=== PATIENT | male | born 1960 | race Caucasian/White ===

== ENCOUNTER 2022-02-23 14:29 | Emergency (ER) | payer BC, SELFPAY ==
[2022-02-23 14:38] VITALS: BP 146/93; PULSE 91; RESP 18; TEMP 36.2; O2SAT 97; BMI 28.3
[2022-02-23 15:00] VITALS: BP 144/84; PULSE 86; O2SAT 95
[2022-02-23 15:09] LABS: Basophils Absolute Auto 0.01 K/uL (0.00-0.30); Basophils Percent Auto 0.2 % (0.0-3.0); Eosinophils Absolute Auto 0.08 K/uL (0.00-0.50); Eosinophils Percent Auto 1.5 % (0.0-7.0); Hemoglobin* 15.5 gm/dL (13.5-17.5); Immature Granulocytes Abs Auto 0.03 K/uL (0.00-0.30); Immature Granulocytes Pct Auto 0.5 %; Lymphocytes Absolute Auto 1.45 K/uL (0.90-2.90); Lymphocytes Percent Auto 26.4 % (20-44); Mean Corpuscular HGB Conc 34 gm/dL (32-36); Mean Corpuscular Hemoglobin 30 pg (26-34); Mean Corpuscular Volume 90 fL (80-100); Monocytes Percent Auto 11.5 % (0.0-11.0); Neutrophils Absolute Auto 3.29 K/uL (1.7-7.0); Neutrophils Percent Auto 59.9 % (42.0-72.0); Platelet Count* 259 K/uL (140-440); RDW Coefficient of Variation % 13.4 % (11.5-15.5); White Blood Count* 5.49 K/uL (4.50-11.00)
[2022-02-23 15:14] LABS: Slide Review Reflex No
[2022-02-23 15:28] LABS: Chloride* 109 mmol/L (96-114); Potassium* 3.6 mmol/L (3.6-5.1); Sodium* 140 mmol/L (135-149)
[2022-02-23 15:30] VITALS: BP 131/84; PULSE 82; RESP 18; O2SAT 95
[2022-02-23 15:30] LABS: Albumin* 4.2 g/dL (3.3-5.0)
[2022-02-23 15:31] LABS: Est. Creatinine Clearance* 65.78; Estimated Glomerular Filt Rate 86 ml/min
[2022-02-23 15:32] LABS: Bilirubin Direct* 0.1 mg/dL (0.0-0.5); Bilirubin Total* 0.5 mg/dL (0.1-1.5); Blood Urea Nitrogen* 14 mg/dL (7-30); Calcium* 8.3 mg/dL (8.4-10.6); Carbon Dioxide* 25 mmol/L (20-32); D Dimer Quantitative* 0.33 ug/ml (0.00-0.50); Glucose* 133 mg/dL (60-115); Total Protein* 6.7 g/dL (6.0-8.3)
[2022-02-23 15:33] LABS: Alanine Aminotransferase* 31 U/L (4-50); Alkaline Phosphatase* 92 U/L (40-150); Aspartate Amino Transferase* 31 U/L (12-35); Lipase* 91 U/L (23-300)
[2022-02-23 15:35] LABS: C Reactive Protein* < 0.5 mg/dL (0.5-1.0)
[2022-02-23 16:00] VITALS: BP 123/86; PULSE 78; O2SAT 94
--- NOTE | 2022-02-23 16:22 | CRLHL7_ITS ---
For Patients: As a result of the Cures Act, medical imaging exams and procedure reports are released immediately into your electronic medical record. You may view this report before your referring provider. If you have questions, please contact your health care provider. INDICATION: Chest pain TECHNIQUE: Chest 2 views. COMPARISON: Chest x-ray 08/24/2016 FINDINGS: The heart is normal in size. The pulmonary vasculature is within normal limits. The lungs are clear without focal consolidation, pleural effusion or pneumothorax. There are mild degenerative changes of the thoracic spine. IMPRESSION: No acute process. Dictated by Renata Dacosta MD @ 02/23/2022 5:13:49 PM Dictated by: Renata Dacosta MD @ 02/23/2022 17:13:57 (Electronically Signed)
[2022-02-23 16:30] VITALS: BP 139/102; PULSE 70; O2SAT 97
--- NOTE | 2022-02-23 16:30 | ED_ITS ---
HPI - General Adult General Date Seen: 02/23/22 Chief complaint: Chest Pain Stated complaint: Chest Pain Time Seen by Provider: 02/23/22 14:43 Source: patient History of Present Illness HPI narrative: Patient is a 61-year-old male who presents for some right-sided chest pain which has been present for the past 3 or 4 days. He says that he notices it after he gets up in the morning, when he is moving around. It is in a localized area in the right chest, he also notes some pain by his scapula on the right, and particularly when he moves his head in a certain way he can bring the pain on. He has not had any pain in the right arm. He says that it tends to bother him until about noon and then goes away for the rest of the day. He describes it is somewhat sharp and achy. He also notes pain with a deep breath when it is bothering him. He maybe has felt a little short of breath, occasionally feels like his heart is may be racing, sometimes feels lightheaded when he stands up, but all of these symptoms seem to go way by noon every day. He had not really thought much of it, but was at work today and a co-worker told him he should get it checked out. He does note that his dad had bypass surgery in his 50s. His mom had a couple of strokes as well. He himself does not have any significant medical problems aside from gastroesophageal reflux. He does not have any history of hypertension, high cholesterol, diabetes. He does not smoke. Drinks rarely. He has not had any exertional chest pain. No syncope. No unusual leg swelling or pain. Denies fevers or cough. There is no history personally or family history of DVT or PE. He has not tried any medications at home for pain. Related Data Home Medications Medication Instructions Recorded Confirmed dexlansoprazole 60 mg mg 02/23/22 capsule,biphase delayed release (Dexilant) Allergies Allergy/AdvReac Type Severity Reaction Status Date / Time No Known Drug Allergies Allergy Verified 02/23/22 14:40 Review of Systems Status of ROS: Reports: 10 or more systems reviewed and unremarkable except as noted in History and below [facility] Social History Smoking Status: Never smoker How often do you have a drink containing alcohol: 2-4 times a month AUDIT-C Alcohol total score: 2 Non-prescribed substance use: denies use Exam Narrative: Exam Narrative: Vital signs as noted above. In general, an alert, well-appearing patient. Head: Normocephalic, atraumatic. Eyes: Pupils are equal reactive. Extraocular movements are full. Conjunctivae are normal. ENT: Mucous membranes are moist. Throat is normal. Neck: Supple without lymphadenopathy. Heart: Regular rate and rhythm. No murmur or rub. No reproducible chest wall tenderness. Lungs: Clear bilaterally. No increased work of breathing, crackles or wheezes. Abdomen: Soft and nontender. No organomegaly. Extremities: Well perfused. No edema. No calf tenderness. Pulses intact. Neurologic: Patient is alert and oriented to person and place. Speech is fluent. Face is symmetric. Moves all extremities equally. Affect: Normal. Skin: Warm and dry. Well perfused. Const: Vital Signs, click to edit/add: Vital Signs - 24 hr 02/23/22 14:38 02/23/22 15:00 02/23/22 15:30 Temperature 97.1 F L Pulse Rate [Pulse Oximeter] 91 86 82 Respiratory Rate 18 18 Blood Pressure [Ri ght Upper Arm] 146/93 H 144/84 H 131/84 Pulse Oximetry 97 95 95 Oxygen Delivery Me thod Room Air Room Air Room Air 02/23/22 16:00 02/23/22 16:30 02/23/22 17:00 Temperature Pulse Rate [Pulse Oximeter] 78 70 73 Respiratory Rate Blood Pressure [Ri ght Upper Arm] 123/86 139/102 H 120/88 Pulse Oximetry 94 97 96 Oxygen Delivery Me thod Room Air Room Air Room Air Course Course Hospital Course: Following initial evaluation, patient had an EKG which by my review showed a normal sinus rhythm, ventricular rate of 87 beats per minute. No acute ST segment changes. Normal EKG. Overall, my suspicion for cardiac etiology is low. He is able to reproduce the symptoms with certain movements of his head and neck, and I suspect that this is musculoskeletal in etiology. Given that it was pleuritic I did do a D-dimer which was negative. He does not have other risk factors for PE and I think this is ruled out with a negative D-dimer. His troponin was negative, and given the overall nature of his symptoms I do not think he needs further cardiac workup today. Would recommend primary care follow-up to make sure that this is resolving and not changing to ensure that he does not need further evaluation for heart disease given his family history. LFTs and lipase are normal. His symptoms do not sound suspicious for biliary colic. He does take medication for gastroesophageal reflux, I am not overly suspicious of an exacerbation of this underlying condition. A two view chest x- ray by my review is negative. Final radiology report is likewise negative. I would suggest that we try a trial of nonsteroidals and see how he feels over the next few days. Discussed with him I do not want him to continue that for too long given his history of gastroesophageal reflux, but I think couple of days is reasonable to see if it alleviates his symptoms. Return at any time for acute worsening, severe pain, or new symptoms. Vital Signs Vital signs: Initial Vital Signs Temperature 97.1 F L 02/23/22 14:38 Temperature Source Temporal Artery Scan 02/23/22 14:38 Pulse Rate 91 02/23/22 14:38 Respiratory Rate 18 02/23/22 14:38 Blood Pressure 146/93 H 02/23/22 14:38 Blood Pressure Mean 110 02/23/22 14:38 Blood Pressure Position Supine 02/23/22 14:38 Pulse Oximetry 97 02/23/22 14:38 Oxygen Delivery Method 02/23/22 14:38 Vital Signs Temperature 97.1 F L 02/23/22 14:38 Pulse Rate 91 02/23/22 14:38 Respiratory Rate 18 02/23/22 14:38 Blood Pressure 146/93 H 02/23/22 14:38 Pulse Oximetry 97 02/23/22 14:38 Oxygen Delivery Method 02/23/22 14:38 Temperature 97.1 F L 02/23/22 14:38 Pulse Rate 73 02/23/22 17:00 Respiratory Rate 18 02/23/22 15:30 Blood Pressure 120/88 02/23/22 17:00 Pulse Oximetry 96 02/23/22 17:00 Oxygen Delivery Method 02/23/22 17:00 Medical Decision Making Lab Data Labs: Lab Results 02/23/22 02/23/22 02/23/22 Range/Units 15:02 15:02 15:02 WBC 5.49 (4.50-11.00) K/uL RBC 5.10 (4.30-5.90) m/uL Hgb 15.5 (13.5-17.5) gm/dL Hct 46.0 (37.0-53.0) % MCV 90 (80-100) fL MCH 30 (26-34) pg MCHC 34 (32-36) gm/dL RDW Coeff of César 13.4 (11.5-15.5) % Plt Count 259 (140-440) K/uL Neut % (Auto) 59.9 (42.0-72.0) % Lymph % (Auto) 26.4 (20-44) % Weld % (Auto) 11.5 H (0.0-11.0) % Eos % (Auto) 1.5 (0.0-7.0) % Baso % (Auto) 0.2 (0.0-3.0) % Neut # (Auto) 3.29 (1.7-7.0) K/uL Lymph # (Auto) 1.45 (0.90-2.90) K/uL Weld # (Auto) 0.60 (0.00-0.90) K/UL Eos # (Auto) 0.08 (0.00-0.50) K/uL Baso # (Auto) 0.01 (0.00-0.30) K/uL Abs Immat Gran (auto) 0.03 (0.00-0.30) K/uL Imm/Tot Granulo (auto) 0.5 % D-Dimer Quant (PE/DVT) 0.33 (0.00-0.50) ug/ml Sodium 140 (135-149) mmol/L Potassium 3.6 (3.6-5.1) mmol/L Chloride 109 (96-114) mmol/L Carbon Dioxide 25 (20-32) mmol/L BUN 14 (7-30) mg/dL Creatinine 1.0 (0.5-1.5) mg/dL Estimated Creat Clear 65.78 Estimated GFR 86 ml/min Glucose 133 H (60-115) mg/dL Calcium 8.3 L (8.4-10.6) mg/dL Total Bilirubin (0.1-1.5) mg/dL Direct Bilirubin (0.0-0.5) mg/dL AST (12-35) U/L ALT (4-50) U/L Alkaline Phosphatase (40-150) U/L C-Reactive Protein < 0.5 L (0.5-1.0) mg/dL Total Protein (6.0-8.3) g/dL Albumin (3.3-5.0) g/dL Lipase (23-300) U/L POC Troponin I (0.01-0.04) ng/ml 02/23/22 02/23/22 Range/Units 15:02 15:02 WBC (4.50-11.00) K/uL RBC (4.30-5.90) m/uL Hgb (13.5-17.5) gm/dL Hct (37.0-53.0) % MCV (80-100) fL MCH (26-34) pg MCHC (32-36) gm/dL RDW Coeff of César (11.5-15.5) % Plt Count (140-440) K/uL Neut % (Auto) (42.0-72.0) % Lymph % (Auto) (20-44) % Weld % (Auto) (0.0-11.0) % Eos % (Auto) (0.0-7.0) % Baso % (Auto) (0.0-3.0) % Neut # (Auto) (1.7-7.0) K/uL Lymph # (Auto) (0.90-2.90) K/uL Weld # (Auto) (0.00-0.90) K/UL Eos # (Auto) (0.00-0.50) K/uL Baso # (Auto) (0.00-0.30) K/uL Abs Immat Gran (auto) (0.00-0.30) K/uL Imm/Tot Granulo (auto) % D-Dimer Quant (PE/DVT) (0.00-0.50) ug/ml Sodium (135-149) mmol/L Potassium (3.6-5.1) mmol/L Chloride (96-114) mmol/L Carbon Dioxide (20-32) mmol/L BUN (7-30) mg/dL Creatinine (0.5-1.5) mg/dL Estimated Creat Clear Estimated GFR ml/min Glucose (60-115) mg/dL Calcium (8.4-10.6) mg/dL Total Bilirubin 0.5 (0.1-1.5) mg/dL Direct Bilirubin 0.1 (0.0-0.5) mg/dL AST 31 (12-35) U/L ALT 31 (4-50) U/L Alkaline Phosphatase 92 (40-150) U/L C-Reactive Protein (0.5-1.0) mg/dL Total Protein 6.7 (6.0-8.3) g/dL Albumin 4.2 (3.3-5.0) g/dL Lipase 91 (23-300) U/L POC Troponin I 0.00 L (0.01-0.04) ng/ml Discharge Plan Discharge Clinical Impression: Atypical chest pain Patient Disposition: Home, Self-Care Condition: Stable Instructions: Chest Wall Pain (ED) Additional Instructions: I suspect chest pain is related to a musculoskeletal problem. I would recommend that we try a few days of scheduled ibuprofen, 400 mg 3 times daily with food. I do not when she to continue this for more than a few days as it may cause you more problems with heartburn. If you are not improving in that time, follow-up with your primary doctor for re-evaluation. If you have any significant worsening, severe pain, new symptoms such as fever, severe shortness of breath, vomiting, fainting, etcetera return at any time for re-evaluation. Prescriptions: No Action dexlansoprazole [Dexilant] 60 mg capsule,biphase delayed releas Follow Up/Referrals: Fitz Guerrero MD [Primary Care Provider] - Stand Alone Forms: [employer] Info Instructions
[2022-02-23 17:00] VITALS: BP 120/88; PULSE 73; O2SAT 96
== END 2022-02-23 17:24 | disposition home or self-care (01) ==
PROVIDERS: Emergency Provider Emergency Medicine; PCP Family Medicine
DX: R07.89 Other chest pain (principal)
CPT/HCPCS: 36415; 71046; 80048; 80076; 83690; 85025; 85379; 86140; 93005; 94761; 99284

== ENCOUNTER 2024-09-15 09:37 | Emergency (ER) | payer BC, SELFPAY ==
--- OUTSIDE RECORDS SUMMARY | 2024-09-15 09:39 | XMS_ITS | Clinical Summary ---
Author Organization [place] Address [address] [place] [id number] Care Team Providers Care Primer Inspector Name Role Phone [facility], [facility] Primary Care Provider Allergies Active Allergy Reactions Criticality Noted Date Comments Hydromorphone Nausea and Vomiting 05/19/2017 Per patient Medications dexlansoprazole (DEXILANT) 60 MG CPDR CR capsule Take 60 mg by mouth 2 times daily Active Family History Medical History Relation Comments Colon Cancer No family hx of Social History Tobacco Use Types Packs/Day Years Used Date Smoking Tobacco: Never Smokeless Tobacco: Never Alcohol Use Standard Drinks/Week Comments No 0 (1 standard drink = 0.6 oz pur e alcohol) Adolescent Education Answer Date Record ed Getting School Help Needed Not on file 01/18 Sex and Gender Information Value Date Recorded Sex Assigned at Not on file Legal Sex 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 Gender Identity Not on file Sexual Orientation Not on file Last Filed Vital Signs Vital Sign Reading Time Taken Comments Blood Pressure 119/84 05/19/2017 8:30 AM ROLLOFF DRIVER Pulse - - Temperature - - Respiratory Rate 16 05/19/2017 8:30 AM ROLLOFF DRIVER Oxygen Saturation 96% 05/19/2017 8:30 AM ROLLOFF DRIVER Inhaled Oxygen Concentration - - Weight 77.1 kg (170 lb) 05/19/2017 7:23 AM ROLLOFF DRIVER Height 162.6 cm (5' 4) 05/19/2017 7:23 AM ROLLOFF DRIVER Body Mass Index 29.18 05/19/2017 7:23 AM ROLLOFF DRIVER Plan of Treatment Not on file [place] Care Teams Primer Inspector Relationship Specialty Start Date End Date [facility], [address] [id number] PCP - General 05/19/17
--- OUTSIDE RECORDS SUMMARY | 2024-09-15 09:39 | XMS_ITS | Clinical Summary ---
Author Organization [employer] Address [facility] [place] [address] Care Team Providers Care Manager Plumbing Name Role Phone Fitz Guerrero MD Primary Care Provider [phone] Joel Ybarra MD Unavailable [phone] Allergies Active Allergy Reactions Criticality Noted Date Comments Hydromorphone (Bulk) Nausea And Vomiting 2017 Pt stated he had N/V from Dialudid in the past as well Medications lidocaine 5% (LIDODERM) 5 % patch Apply 1 Patch on dry, clean, hairless skin once daily if needed. 0 7 Active Dexlansoprazol e (DEXILANT) 60 mg CpDB delayed release capsule Take 60 mg by mouth 2 times daily. 11 8 Active cyanocobalamin (VITAMIN B12) 500 mcg tablet Take 500 mcg by mouth once daily. Active ascorbic acid, vitamin C, (VITAMIN C) 250 mg tablet Take 250 mg by mouth once daily. Active acetaminophen (TYLENOL EXTRA STRGTH) 500 mg tabletIndicati ons:Hiatal hernia Take 2 tablets by mouth every 6 hours if needed (For mild pain 1st choice. May take either Tylenol tablet or liquid, if both ordered.). Max acetaminophen dose: 4000mg in 24 hrs. 0 12/18/201 8 Active azithromycin (Zithromax Z-Tray) 250 mg tabletIndicati ons:Bronchitis Take 500 mg (2 tabs) by mouth on day 1, then 250 mg (1 tab) daily for days 2-5. 6 Tablet 2 Active albuterol HFA (PRO-AIR; VENTOLIN; PROVENTIL) 90 mcg/actuation inhalerIndicat ions:Bronchiti s Inhale 2 Puffs by mouth every 4 hours if needed (cough or wheezing). 1 Each 2 Active benzonatate (TESSALON) 100 mg capsuleIndicat ions:Bronchiti s Take 1-2 Capsules (100-200 mg) by mouth 3 times daily if needed for Cough. 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 Jacob at [facility]. This will hopefully eliminate the Jones's according to what he was told. Immunizations Immunization Administration Dates Next Due Measles 08/21/1976 Td (Age >=7 Years) 08/31/2006,06/19/1998 Tdap 05/06/2016,12/13/2009,06/30/2006 Family History Medical History Relation Name Comments Diabetes Father Heart Disease Father in Psychiatric illness Father Nervous breakdown Heart Disease Mother at ag e 85 Relation Name Status Comments Father Mother Social History Tobacco Use Types Packs/Day Years Used Date Smoking Tobacco: Never Smokeless Tobacco: Never Tobacco Cessation:Counseling Given: Yes Alcohol Use Standard Drinks/Week Comments No 0 (1 standard drink = 0.6 oz pur e alcohol) once in awhile PHQ-2 Answer Date Recorded PHQ-2 Score 0 06/15/2018 Social Connections Answer Date Recorded Frequency of Communication with Friends and Fami ly Not on file 04/14/2021 Financial Resource Strain Answer Date R ecorded Difficulty of Paying Living Expenses Not on file 04/14/2021 Difficulty of Paying Living Expenses Not on file 04/14/2021 Sex and Gender Information Value Date Recorded Sex Assigned at Not on file Legal Sex Male 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 Gender Identity Not on file Sexual Orientation Not on file Obstetrics History Last Filed Vital Signs Vital Sign Reading Time Taken Comments Blood Pressure 130/78 04/26/2021 12:02 PM UNDERGROUND BOLTING MACHINE OPERATOR Pulse 82 04/26/2021 12:02 PM UNDERGROUND BOLTING MACHINE OPERATOR Temperature 36.8 C (98.2 F) 04/26/2021 12:02 PM UNDERGROUND BOLTING MACHINE OPERATOR Respiratory Rate 18 04/26/2021 12:02 PM UNDERGROUND BOLTING MACHINE OPERATOR Oxygen Saturation 97% 04/26/2021 12:02 PM UNDERGROUND BOLTING MACHINE OPERATOR Inhaled Oxygen Concentration - - Weight 79.1 kg (174 lb 4.8 oz) 04/26/2021 12:02 PM UNDERGROUND BOLTING MACHINE OPERATOR Height 162.6 cm (5' 4) 03/31/2018 11:06 AM UNDERGROUND BOLTING MACHINE OPERATOR Body Mass Index 29.92 03/31/2018 11:06 AM UNDERGROUND BOLTING MACHINE OPERATOR Plan of Treatment Health Maintenance Due Date Last Done Comments HIV for age 15-65 1976 Hepatitis C screening for age 18-79 11/02/1979 Pneumococcal series for age 50+ (1 of 1 - PCV) 11/02/2011 Zoster (shingles) series for age 50+ (1 of 2) 11/02/2011 Lipids for age 45-75 07/30/2016 07/31/2011, 05/22/2011, 12/26/2006, Additional history exists BMI (ht and wt on same day) for age 18+ 03/20/2019 03/20/2018, 02/26/2018, 09/18/2017, Additional history exists Depression screening for age 12+ 03/20/2019 03/20/2018, 01/21/2017 COVID-19 vaccine series (1 - 2023- season) 2023 Influenza Vaccine (Season Ended) 2024 Tetanus booster 05/06/2026 05/06/2016, 04/2009, 08/31/2006, Additional history exists Colonoscopy through age 75 05/19/202705/19, 05/19/2017, 07/24/2012 [facility] RSV vaccine for adults or (1 - 1-dose 75+ series) 2036 Tdap Completed 05/06/2016, 04/2009, 06/30/2006 Hepatitis B series for 19+ Aged Out N o longer eligible based on patient's age to complete this topic Medical Devices Implanted Type Area Smoking Tobacco Cutter Operator Device Identifier Shelf Expiration Date Model / Serial / Lot [id number] 1-4mm 90cc Medtronic Chips Canclls Freeze Dried Implanted:Qty: 1 on 05/27/2016 by Micheal Padgett MD at [facility] Explanted:at [facility] (Quantity not on file) N/A: Spine Medtronic Spine/Ortho 02/05/2021 [id number] / [id number] / Screw Lmbr Post 6.5x40mm Solera 5.5/6 Va Cocr - [id number] Implanted:Qty: 1 on 05/27/2016 by Micheal Padgett MD at [facility] N/A: Spine Medtronic Spine/Ortho [id number] 40# / / Screw Lmbr Post 6.5x45mm Solera 5.5/6 Va Cocr - [id number] Implanted:Qty: 2 on 05/27/2016 by Micheal Padgett MD at [facility] N/A: Spine Medtronic Spine/Ortho [id number] 45# / / [id number] 1-4mm 30cc Medtronic Chips Canclls Freeze Dried Implanted:Qty: 1 on 05/27/2016 by Micheal Padgett MD at [facility] Explanted:at [facility] (Quantity not on file) N/A: Spine Medtronic Spine/Ortho 02/21/2021 [id number] / [id number] / Spacer Lmbr [id number] 10deg [employer] - [id number] Implanted:Qty: 1 on 05/27/2016 by Micheal Padgett MD at [facility] N/A: Spine [employer] [id number]# / / Spacer Lmbr [id number] 10deg [employer] - [id number] Implanted:Qty: 1 on 05/27/2016 by Micheal Padgett MD at [facility] N/A: Spine [employer] [id number]# / / Set Screw Lmbr Ant 5.5mm Solera Break Off - [id number] Implanted:Qty: 6 on 05/27/2016 by Micheal Padgett MD at [facility] N/A: Spine Medtronic Spine/Ortho [id number] / / Screw Lmbr Post 7.5x45mm Solera 5.5/6 Va Cocr - [id number] Implanted:Qty: 2 on 05/27/2016 by Micheal Padgett MD at [facility] N/A: Spine Medtronic Spine/Ortho [id number] 45# / / Screw Lmbr Post 7.5x40mm Solera 5.5/6 Va Cocr - [id number] Implanted:Qty: 1 on 05/27/2016 by Micheal Padgett MD at [facility] N/A: Spine Medtronic Spine/Ortho [id number] 40# / / Aldair Lmbr 80x5.5mm Solera 5.5/6cvd Titnm - [id number] Implanted:Qty: 2 on 05/27/2016 by Micheal Padgett MD at [facility] N/A: Spine Medtronic Spine/Ortho [id number] 0# / / Explanted Type Area Smoking Tobacco Cutter Operator Device Identifier Shelf Expiration Date Model / Serial / Lot Explants Explanted:Qty: 1 on 05/27/2016 at [facility] N/A: Spine / / X Description:Pedicle screws/r ods (Synergy), removed at L5-S1. Explant Explanted:Qty: 1 on 05/02/2017 at [facility] Description:RODS X2, SET SCR EWS X5, SCREWS X5 Procedures Procedure Name Priority Date/Time Associated Diagnosis Comments SCAN-COLONOSCOPY 05/19/2017 12:0 0 AM UNDERGROUND BOLTING MACHINE OPERATOR LIPID PANEL W REFLEX MEASURED LDL Routine 07/31/2011 7:50 AM CDT Other and unspecified hyperlipidemia from Last 3 Months or Most Recently Relevant to Health Maintenance Results * SCAN-COLONOSCOPY (05/19/2017 12:00 AM UNDERGROUND BOLTING MACHINE OPERATOR) us Scanner OTHER Final Result * LIPID PANEL W REFLEX MEASURED LDL (07/31/2011 7:50 AM CDT) CHOLESTEROL,TOTAL 175 100 - 199 mg/dL [facility] TRIGLYCERIDES 57 <150 mg/dL [facility] HDL CHOLESTEROL 50 >40 mg/dL [facility] CHOL/HDL RATIO 3.50 <4.50 [facility] LDL CHOLESTEROL 114 <131 mg/dL [facility] PATIENT STATUS Fasting [facility] Blood specimen (specimen) BLOOD SPECIMEN / Unknown 07/31/2011 7:50 AM CDT 07/31/2011 7:43 AM CDT us Fitz Guerrero MD CHEMISTRY Final Resu lt [facility] [address] [place] [address] from Last 3 Months or Most Recently Relevant to Health Maintenance Insurance [facility] [employer] TRAVELERS TRAVELERS TRAVELERS TRAVELERS * Guarantor: DANNY CASON Account Type Relation to Patient Date of Phone Billing Address [employer] 1960 [id number] [place] [address] * Guarantor: [employer] Account Type Relation to Patient Date of Phone Billing Address [facility] [id number] [place] [address] Advance Directives Documents on File Type Date Recorded Patient Singe Winder Expl anation Healthcare Directive 06/04/2016 10:05 PM * Full Code (Latest Code Status on File) Date Activated Date Inactivated Comments 03/31/2018 10:42 AM 03/31/2018 11:11 PM * Full Code Date Activated Date Inactivated Comments 05/02/2017 1:20 PM 05/04/2017 1:24 PM * Full Code Date Activated Date Inactivated Comments 05/02/2017 6:51 AM 05/02/2017 1:19 PM Question Answer Comments Code Status Discussion: Not Discussed * Full Code Date Activated Date Inactivated Comments 05/27/2016 3:05 PM 05/30/2016 1:23 PM * Full Code Date Activated Date Inactivated Comments 05/27/2016 5:49 AM 05/27/2016 3:05 PM Care Teams Manager Plumbing Relationship Specialty Start Date End Date Fitz Guerrero MD [address] [place] [address] PCP - General Family Practice 07/04/11 Joel Ybarra MD [address] [place] [address] Family Practice 07/14/12
[2024-09-15 09:42] VITALS: BP 134/82; PULSE 72; RESP 20; TEMP 35.9; O2SAT 99; BMI 27.8
--- NOTE | 2024-09-15 10:07 | CRLHL7_ITS ---
For Patients: As a result of the Century Cures Act, medical imaging exams and procedure reports are released immediately into your electronic medical record. You may view this report before your referring provider. If you have questions, please contact your health care provider. CT ANGIOGRAM NECK DATE: 09/15/2024 CLINICAL HISTORY: Patient with dizziness with head turning. TECHNIQUE: Standard helical CT image acquisition of the neck up to the skull base after bolus intravenous contrast enhancement. 2D and 3D MIP images for post-processing were performed and interpreted on an independent workstation and 3D images were permanently archived. COMPARISON: CT same day. FINDINGS: The origins of the great vessels from the aortic arch are patent. The origin of the right vertebral artery is patent. The origin of the left vertebral artery is patent. The common carotid arteries are patent. There is no stenosis at the origin of the right internal carotid artery. There is no stenosis at the origin of the left internal carotid artery. The rest of the cervical segments of the internal carotid arteries are patent up to the skull base. The vertebral arteries are codominant. The cervical segments of the vertebral arteries are patent up to the skull base. The visualized lung apices are unremarkable. The thyroid gland is unremarkable. The soft tissues of the neck are unremarkable. There are degenerative changes in the cervical spine. IMPRESSION: Patent cervical vasculature without evidence of vertebral artery dissection. Please note that all CT scans at this facility use dose modulation, iterative reconstruction, and/or weight-based dosing when appropriate to reduce radiation dose to as low as reasonably achievable. Dictated by: Bryan Méndez MD @ 09/15/2024 11:22:17 (Electronically Signed)
--- NOTE | 2024-09-15 10:07 | CRLHL7_ITS ---
For Patients: As a result of the Century Cures Act, medical imaging exams and procedure reports are released immediately into your electronic medical record. You may view this report before your referring provider. If you have questions, please contact your health care provider. CT ANGIOGRAM HEAD DATE: 09/15/2024 CLINICAL HISTORY: Patient with dizziness. TECHNIQUE: Standard helical CT image acquisition through the intracranial circulation following intravenous administration of contrast material with bolus tracking. 2D and 3D MIP images for post-processing were performed and interpreted on an independent workstation and 3D images were permanently archived. COMPARISON: CT same day. FINDINGS: There is no proximal intracranial large vessel occlusion. 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 The right middle cerebral artery and its branches are normal. The right anterior cerebral artery and its branches are normal. The left internal carotid artery is normal. The left middle cerebral artery and its branches are normal. The left anterior cerebral artery and its branches are normal. The anterior communicating artery is well visualized and appears normal. The right vertebral artery and PICA are normal. The left vertebral artery and PICA are normal. The vertebral arteries are codominant. The basilar artery is patent and appears normal. The right posterior cerebral artery is normal. The left posterior cerebral artery is normal. The visualized venous structures are patent. IMPRESSION: 1. No proximal intracranial large vessel occlusion. 2. 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 Telehealth consultation with [facility]`s Neurointerventional team for enrollment in our long-term brain aneurysm surveillance program can be arranged by calling . Bryan Méndez M.D. Neurointerventional Radiologist [facility] [place] Pager: Office/Referrals: [facility] Center: [email or web address] Please note that all CT scans at this facility use dose modulation, iterative reconstruction, and/or weight-based dosing when appropriate to reduce radiation dose to as low as reasonably achievable. Dictated by: Bryan Méndez MD @ 09/15/2024 11:26:04 (Electronically Signed)
--- NOTE | 2024-09-15 10:08 | CRLHL7_ITS ---
For Patients: As a result of the Century Cures Act, medical imaging exams and procedure reports are released immediately into your electronic medical record. You may view this report before your referring provider. If you have questions, please contact your health care provider. CT HEAD DATE: 09/15/2024 CLINICAL HISTORY: Patient with dizziness and vertigo. TECHNIQUE: Standard CT scanning of the head was performed. COMPARISON: None. FINDINGS: There is no intracranial hemorrhage. There is no territorial infarction. There are mild microangiopathic changes. There is diffuse parenchymal volume loss. There is no mass effect or midline shift. The calvarium is unremarkable. The orbits are unremarkable. The paranasal sinuses are unremarkable. The mastoid air cells are unremarkable. The soft tissues are unremarkable. IMPRESSION: 1. No intracranial hemorrhage or territorial infarction. 2. Mild microangiopathic changes and diffuse parenchymal volume loss. Please note that all CT scans at this facility use dose modulation, iterative reconstruction, and/or weight-based dosing when appropriate to reduce radiation dose to as low as reasonably achievable. Dictated by: Bryan Méndez MD @ 09/15/2024 11:13:34 (Electronically Signed)
[2024-09-15] MEDS: MECLIZINE HCL 25 MG TABLET PO (10:14)
[2024-09-15] MEDS: 0.9 % SODIUM CHLORIDE 1000 ml 1,000 ML 6000 ML IV (10:15)
--- NOTE | 2024-09-15 10:16 | ED.GENADULT ---
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 Patient had unsteady gait threw up a couple of times he is better at rest now but if he moves he gets very dizzy. He noticed no focal weakness in his arms or legs no facial asymmetry. No word-finding inability. He does not have a headache. He does not have a history of neck trauma. He still feels like he is ?floating on a cloud in a ?. Denies any drug or alcohol intake, denies any chronic health issues other than GERD. He takes a proton pump inhibitor. Related Data Home Medications ?Medication ?Instructions ?Recorded ?Confirmed dexlansoprazole 60 mg mg 02/23/22 capsule,biphase delayed release (Dexilant) Previous Rx's ?Medication ?Instructions ?Recorded meclizine 25 mg chewable tablet 25 mg PO TID PRN #10 tabs 09/15/24 (Antivert) Allergies Allergy/AdvReac Type Severity Reaction Status Date / Time No Known Drug Allergies Allergy Verified 09/15/24 10:56 Review of Systems Status of ROS: Reports: 6 or more systems reviewed and unremarkable except as noted in History and below [facility] Social History Smoking Status: Never smoker How often do you have a drink containing alcohol: 2-4 times a month AUDIT-C Alcohol total score: 2 Non-prescribed substance use: denies use Exam Narrative: Exam Narrative: Objective vital signs look largely within normal limits, he is alert orient x3 no facial asymmetry No scleral icterus pupils are equal react to light extra movements intact negative nystagmus Tongue protrudes midline Smile is symmetric Forehead is symmetrically strong. Neck is supple nontender lungs clear Heart rhythm regular 2/6 systolic murmur Abdomen benign soft Extremities neurologic nonfocal upper extremities the sensation and touch and strength. Good peripheral perfusion perfusion noted Const: Vital Signs, click to edit/add: Vital Signs - 24 hr 09/15/24 09:42 Temperature 96.7 F L Pulse Rate [Pulse Oximeter] 72 Respiratory Rate 20 Blood Pressure [Ri ght Upper Arm] 134/82 Pulse Oximetry 99 Oxygen Delivery Me thod Room Air Course Vital Signs Vital signs: Initial Vital Signs Temperature 96.7 F L 09/15/24 09:42 Temperature Source Temporal Artery Scan 09/15/24 09:42 Pulse Rate 72 09/15/24 09:42 Respiratory Rate 20 09/15/24 09:42 Blood Pressure 134/82 09/15/24 09:42 Blood Pressure Mean 99 09/15/24 09:42 Blood Pressure Position Sitting 09/15/24 09:42 Pulse Oximetry 99 09/15/24 09:42 Oxygen Delivery Method Room Air 09/15/24 09:42 Vital Signs Temperature 96.7 F L 09/15/24 09:42 Pulse Rate 72 09/15/24 09:42 Respiratory Rate 20 09/15/24 09:42 Blood Pressure 134/82 09/15/24 09:42 Pulse Oximetry 99 09/15/24 09:42 Oxygen Delivery Method Room Air 09/15/24 09:42 Temperature 96.7 F L 09/15/24 09:42 Pulse Rate 72 09/15/24 09:42 Respiratory Rate 20 09/15/24 09:42 Blood Pressure 134/82 09/15/24 09:42 Pulse Oximetry 99 09/15/24 09:42 Oxygen Delivery Method Room Air 09/15/24 09:42 Medications Administered Medications: Discontinued Medications Generic Name Dose Route Start Last Admin Trade Name Freq PRN Reason Stop Dose Admin Sodium Chloride 1,000 mls @ 6,000 mls/hr 09/15/24 10:15 09/15/24 11:50 0.9 % Sodium Chloride 1000 Ml IV 09/15/24 10:24 Infused .Q10M JACKY Infusion Meclizine HCl 25 mg 09/15/24 10:07 09/15/24 10:14 Meclizine Hcl 25 Mg Tablet PO 09/15/24 10:08 25 mg ONCE ONE Administration Medical Decision Making MDM Narrative Medical decision making narrative: 63-year-old white male with sudden onset of significant vertiginous symptoms with the room spinning around with sudden movement of his neck. He has no focal neurologic findings does not have a headache. I think just given his age he would be reasonable to do a head CT and CTA of his head neck. Will get lab studies neuro consult as needed, IV fluid, meclizine can be given. Disposition pending findings above. Rule out stroke, rule out middle ear labyrinthitis, rule out BPV. Patient's family are comfortable plan and agreed with the workup plan. Treatment as above disposition pending findings. Addendum Gilmer 8:00 a.m.: The patient's EKG by my independent read shows normal sinus rhythm no EKG changes of acuity. The patient has a 1.5 mm aneurysm in the internal carotid artery right optic area that needs follow-up with the monitoring clinic. The number was given for the monitoring Clinic on his CT scan report. They will call and make a follow-up appointment. There is no other abnormalities noted on a CT scan of the head or neck. No obstructions noted vascularly no vertebral artery dissection. The patient's lab work looks normal troponins negative I think we can allow him to go home he feels better with Antivert will long to use Antivert as needed. I think he has got a little labyrinth in abdomen vestibulitis from his motion this will likely just continue to improve he can take a few days off fluids observation light activity. Return as needed. Lab Data Labs: Lab Results 09/15/24 09/15/24 09/15/24 Range/Units 10:09 10:19 10:29 WBC 5.47 (4.50-11.00) K/uL RBC 5.13 (4.30-5.90) m/uL Hgb 15.0 (13.5-17.5) gm/dL Hct 45.1 (37.0-53.0) % MCV 88 (80-100) fL MCH 29 (26-34) pg MCHC 33 (32-36) gm/dL RDW Coeff of César 12.6 (11.5-15.5) % Plt Count 257 (140-440) K/uL Neut % (Auto) 66.4 (42.0-72.0) % Lymph % (Auto) 22.1 (20-44) % [place] % (Auto) 9.5 (0.0-11.0) % Eos % (Auto) 1.1 (0.0-7.0) % Baso % (Auto) 0.4 (0.0-3.0) % Neut # (Auto) 3.63 (1.7-7.0) K/uL Lymph # (Auto) 1.21 (0.90-2.90) K/uL [place] # (Auto) 0.50 (0.00-0.90) K/UL Eos # (Auto) 0.06 (0.00-0.50) K/uL Baso # (Auto) 0.02 (0.00-0.30) K/uL Abs Immat Gran (auto) 0.03 (0.00-0.30) K/uL Imm/Tot Granulo (auto) 0.5 % Sodium 139 (135-149) mmol/L Potassium 3.9 (3.6-5.1) mmol/L Chloride 107 (96-114) mmol/L Carbon Dioxide 22 (20-32) mmol/L Anion Gap 10 (7-15) mEq/L BUN 16 (7-30) mg/dL Creatinine 1.0 (0.5-1.5) mg/dL Estimated Creat Clear 64.13 Estimated GFR 85 ml/min Glucose 147 H (60-115) mg/dL Calcium 8.8 (8.4-10.6) mg/dL C-Reactive Protein < 0.5 L (0.5-1.0) mg/dL POC Creatinine 1.1 (0.6-1.3) mg/dl POC Troponin I 0.00 L (0.01-0.04) ng/ml Discharge Plan Discharge Clinical Impression: Vertigo Patient Disposition: Home w/ Parent or Adult Condition: Improved Instructions: Vertigo (ED) Additional Instructions: Follow-up with the aneurysm clinic per the number given to you as described, light activity, fluids, off work for few days. Antivert as needed for any lightheadedness or dizziness. Return as needed. Follow up with regular doctor next 5-7 days. Activity Level: Light activity Discharge Diet: Regular Prescriptions: New meclizine [Antivert] 25 mg tablet,chewable 25 mg PO TID PRNQty: 10 0RF No Action dexlansoprazole [Dexilant] 60 mg capsule,biphase delayed releas Follow Up/Referrals: Fitz Guerrero MD [Primary Care Provider, Family Practice] Stand Alone Forms: [facility] Info Instructions
[2024-09-15 10:28] LABS: Basophils Absolute Auto 0.02 K/uL (0.00-0.30); Basophils Percent Auto 0.4 % (0.0-3.0); Eosinophils Absolute Auto 0.06 K/uL (0.00-0.50); Eosinophils Percent Auto 1.1 % (0.0-7.0); Hematocrit* 45.1 % (37.0-53.0); Immature Granulocytes Abs Auto 0.03 K/uL (0.00-0.30); Immature Granulocytes Pct Auto 0.5 %; Lymphocytes Absolute Auto 1.21 K/uL (0.90-2.90); Lymphocytes Percent Auto 22.1 % (20-44); Mean Corpuscular HGB Conc 33 gm/dL (32-36); Mean Corpuscular Hemoglobin 29 pg (26-34); Mean Corpuscular Volume 88 fL (80-100); Monocytes Percent Auto 9.5 % (0.0-11.0); Neutrophils Absolute Auto 3.63 K/uL (1.7-7.0); Neutrophils Percent Auto 66.4 % (42.0-72.0); Platelet Count* 257 K/uL (140-440); RDW Coefficient of Variation % 12.6 % (11.5-15.5); Red Blood Count* 5.13 m/uL (4.30-5.90); White Blood Count* 5.47 K/uL (4.50-11.00)
[2024-09-15 10:30] LABS: Creatinine, Point-of-Care* 1.1 mg/dl (0.6-1.3)
[2024-09-15 10:35] LABS: Slide Review Reflex No
[2024-09-15 10:41] LABS: Chloride* 107 mmol/L (96-114); Potassium* 3.9 mmol/L (3.6-5.1); Sodium* 139 mmol/L (135-149)
[2024-09-15 10:45] LABS: Anion Gap 10 mEq/L (7-15); Blood Urea Nitrogen* 16 mg/dL (7-30); Calcium* 8.8 mg/dL (8.4-10.6); Carbon Dioxide* 22 mmol/L (20-32); Est. Creatinine Clearance* 64.13; Estimated Glomerular Filt Rate 85 ml/min; Glucose* 147 mg/dL (60-115)
[2024-09-15 10:48] LABS: C Reactive Protein* < 0.5 mg/dL (0.5-1.0)
== END 2024-09-15 11:55 | disposition home or self-care (01) ==
PROVIDERS: Emergency Provider Family Medicine; PCP Family Medicine
DX: R42 Dizziness and giddiness (principal)
CPT/HCPCS: 36415; 70450; 70496; 70498; 80048; 82565; 84484; 85025; 86140; 93005; 99284; 99285; A9270; J7030; Q9967